=== PATIENT | female | born 1990 | race Caucasian/White ===

== ENCOUNTER 2021-01-08 05:07 | Emergency (ER) | payer OTHER ==
[~2021-01-08] VITALS: Ht 170.2 cm; Wt 55.0 kg
[2021-01-08 05:16] VITALS: BP 99/62
--- NOTE | 2021-01-08 05:23 | NUR ---
PT BIB POV D/T REDNESS AND SWELLING OF R ANKLE. PT STATES SHE WAS SEEN FOR THIS AND PRESCRIBED KEFLEX BUT THE PAIN IS GETTING WORSE. PT HAS TAKEN 3 DOSES OF KEFLEX. PT RESTING IN [facility], MONITORING IN PLACE, [place] AT THIS TIME, JAM[place].
[2021-01-08] MEDS ORDERED: DOXYCYCLINE 100MG TABLET ONE (06:39)
[2021-01-08] MEDS ORDERED: PLEASE ENTER ALLERGIES MC SCH (07:00)
[2021-01-08] MEDS ORDERED: DOXYCYCLINE 100MG TABLET PO ONE (07:00)
== END 2021-01-08 07:12 | disposition home or self-care (01) ==
LOC: ED 06:00
DX: L03.115 Cellulitis of right lower limb (principal); F17.200 Nicotine dependence, unspecified, uncomplicated
CPT/HCPCS: 99283